=== PATIENT | female | born 1975 | race Caucasian/White ===

== ENCOUNTER → 2016-12-21 | Outpatient (CLI) | payer OTHER ==
[~2016-12-21] MED LIST: ALBUAER3 INH; BENZ100 PO; CITA10TA4 PO; FERR1TAB58 PO; FERR325C PO; LEVO125T4 PO; PRED20 PO; XARE20TA PO; ZITHTAB PO
[2016-12-21 15:23] LABS: MEAN CELL VOLUME 88.4 FL (80.0-100.0); MEAN CORPUSCULAR HEMOGLOBIN 31.4 PG (27.0-34.0); MEAN CORPUSCULAR HGB CONC 35.5 % (32.0-36.0); PLATELET COUNT 171 TH/MM3 (150-450); RED BLOOD COUNT 4.87 MIL/MM3 (4.00-5.30); RED CELL DISTRIBUTION WIDTH 12.4 % (11.6-17.2); REVIEW FLAG FINAL; WHITE BLOOD COUNT 7.4 TH/MM3 (4.0-11.0)
[2016-12-21 15:26] LABS: BACTERIA, URINE MOD /hpf; BLOOD, URINE NEG (NEG); GLUCOSE,URINE NEG (NEG); HYALINE CAST, URINE 1 /lpf (RARE); KETONE, URINE NEG (NEG); NITRITE,URINE NEG (NEG); SQUAMOUS EPITHELIAL CELL URINE 3 /hpf (0-5); URINE COLOR YELLOW (YELLW/STRAW)
[2016-12-21 15:33] LABS: ALT (GPT) 27 U/L (10-53); ANION GAP 7 MEQ/L (5-15); AST (GOT) 13 U/L (15-37); BICARBONATE 26.8 MEQ/L (21.0-32.0); BLOOD UREA NITROGEN 14 MG/DL (7-18); CHLORIDE 105 MEQ/L (98-107); GLOMERULAR FILTRATION RATE 61 ML/MIN (>89); GLUCOSE,FASTING 91 MG/DL (74-99); POTASSIUM 4.1 MEQ/L (3.5-5.1); SODIUM (NA) 139 MEQ/L (136-145)
[2016-12-21 15:36] LABS: ALKALINE PHOSPHATASE 74 U/L (45-117); TOTAL BILIRUBIN ADULT 0.4 MG/DL (0.2-1.0)
== END ==
LOC: CPRE 14:38
PROVIDERS: ATTEND Obstetrics & Gynecology
DX: Z01.810 Encounter for preprocedural cardiovascular examination (principal); N92.0 Excessive and frequent menstruation with regular cycle; N94.6 Dysmenorrhea, unspecified
CPT/HCPCS: 36415; 80053; 81001; 85027; 86304

== ENCOUNTER 2016-12-27 11:27 | Inpatient (IN) | payer OTHER ==
[~2016-12-27] VITALS: Ht 152.4 cm; Wt 63.4 kg
[~2016-12-27 11:27] MED LIST changes: -ALBUAER3 INH; -BENZ100 PO; +BUPIVACAINE LIPOSOME PF 1.3% 20 ML VIAL ONE; -CITA10TA4 PO; +DEXAMETHASONE SOD PHOS 4 MG/ML VIAL IV ONE; -FERR1TAB58 PO; +GLYCOPYRROLATE 0.2 MG/ML VIAL IV ONE; +LIDOCAINE HCL 1% PF 5 ML AMPULE OTHER ONE; +NEOSTIGMINE 3 MG/3 ML SYR IV ONE; +ONDANSETRON HCL 4 MG/2 ML VIAL IV PUSH ONE; -PRED20 PO; +PROPOFOL 200 MG/20 ML AMP IV ONE; +ROCURONIUM INJ 50 MG/5 ML SYRINGE IV PUSH ONE; -ZITHTAB PO
[2016-12-27] MEDS ORDERED: CHLORHEXIDINE GLUCONATE 2 % 1 PACK (2 CLOTHS) TOPICAL PRN (12:45)
[2016-12-27] MEDS ORDERED: POVIDONE IODINE 5% (ANTISEPSIS KIT) 4 APPLICATIONS EACH NARE PRN (12:45)
[2016-12-27] MEDS ORDERED: METOPROLOL TARTRATE 25 MG TAB PO PRN (12:45)
[2016-12-27] MEDS ORDERED: INSULIN HUMAN REGULAR 1,000 UNITS/10 ML VIAL SQ PRN (12:45)
[2016-12-27] MEDS ORDERED: LACTATED RINGER'S 1000 ML IV PRN (12:45)
[2016-12-27] MEDS ORDERED: SODIUM CHLORID 0.9% 500 ML IV PRN (12:45)
[2016-12-27] MEDS ORDERED: ceFAZolin 1,000 MG/NS 100 ML IV ONE ×2 (13:00)
[2016-12-27 13:14] LABS: BETA HCG QUANT LESS THAN 1 MIU/ML (0-5)
[2016-12-27] MEDS ORDERED: FAMOTIDINE 20 MG/2 ML VIAL ONE (13:41)
[2016-12-27] MEDS ORDERED: MIDAZOLAM HCL 2 MG/2 ML VIAL ONE (13:41)
[2016-12-27] MEDS ORDERED: ACETAMINOPHEN 1000 MG/100 ML 100 ML IV ONE (13:41)
[2016-12-27] MEDS ORDERED: ceFAZolin INJ 1,000 MG VIAL ONE (14:14)
[2016-12-27] MEDS ORDERED: ZOLPIDEM TARTRATE 5 MG TAB PO PRN (16:45)
[2016-12-27] MEDS ORDERED: IBUPROFEN 600 MG TAB PO PRN (16:45)
[2016-12-27] MEDS ORDERED: diphenhydrAMINE HCL 50 MG/ML VIAL IV PRN (16:45)
[2016-12-27] MEDS ORDERED: HYDROcodone/IBUPROFEN 7.5MG/200MG TAB PO PRN (16:45)
[2016-12-27] MEDS ORDERED: SODIUM CHLORIDE 0.9% FLUSH 10 ML FLUSH IV FLUSH PRN (16:45)
[2016-12-27] MEDS ORDERED: hydrOXYzine HCL 25 MG TAB PO PRN (16:45)
[2016-12-27] MEDS ORDERED: PROMETHAZINE INJ 25 MG/ML VIAL IM PRN (16:45)
[2016-12-27] MEDS ORDERED: *morphine SULFATE 8 MG/ML PERIprocedure ONLY ONE (16:56)
[2016-12-27] MEDS ORDERED: *PROMETHAZINE 25 MG/ML VIAL PERIprocedural use ONLY ONE (17:05)
[2016-12-27] MEDS ORDERED: *HYDROmorphone PF 1 MG VIAL PERIprocedural Use ONLY ONE ×3 (17:26→19:38)
[2016-12-27] MEDS ORDERED: DO NOT ADM ANY ANTICOAGULANT DRUGS PRN (17:30)
[2016-12-27] MEDS: LACTATED RINGER'S 1000 ML INJ 1,000 ML IV SCH (17:35)
[2016-12-27] MEDS ORDERED: *ONDANSETRON 4 MG VIAL PERIprocedural Use ONLY ONE (17:36)
[2016-12-27] MEDS ORDERED: HYDROmorphone HCL PF 1 MG/ML VIAL IV PRN (18:15)
[2016-12-27] MEDS ORDERED: *diphenhydrAMINE HCL 50 MG/ML VIAL PERIprocedural Use ONLY ONE (18:52)
[2016-12-27 20:00] VITALS: BP 122/76; PULSE 84; RESP 17; TEMP 99.9; O2SAT 99
[2016-12-27] MEDS: SODIUM CHLORIDE 0.9% FLUSH 10 ML FLUSH IV FLUSH SCH (20:37)
[2016-12-27] MEDS: oxyCODONE/ACETAMINOPHEN 5 MG/325 MG TAB PO PRN (22:36)
[2016-12-28] VITALS (8 sets, daily range): BP systolic 96–118; BP diastolic 58–70; PULSE 76–100; RESP 16–20; TEMP 98.4–100.3; O2SAT 93–99
[2016-12-28] MEDS: oxyCODONE/ACETAMINOPHEN 10 MG/325 MG TAB PO PRN ×6 (02:13→22:25)
[2016-12-28] MEDS: LACTATED RINGER'S 1000 ML INJ 1,000 ML IV SCH ×3 (02:15→15:44)
[2016-12-28] MEDS: LEVOTHYROXINE SODIUM 125 MCG TAB PO SCH (06:18)
[2016-12-28 06:45] LABS: AUTOMATED NEUTROPHIL # 7.3 TH/MM3 (1.8-7.7); BASOPHIL % 0.2 % (0.0-2.0); EOSINOPHIL % 0.1 % (0.0-4.0); HEMO FLAGS DIFF FINAL; LYMPH % 10.8 % (9.0-44.0); MEAN CELL VOLUME 88.2 FL (80.0-100.0); MEAN CORPUSCULAR HEMOGLOBIN 30.9 PG (27.0-34.0); MONO % 10.1 % (0.0-8.0); NEUT % 78.8 % (16.0-70.0); PLATELET COUNT 145 TH/MM3 (150-450); RED BLOOD COUNT 4.54 MIL/MM3 (4.00-5.30); RED CELL DISTRIBUTION WIDTH 12.4 % (11.6-17.2); WHITE BLOOD COUNT 9.3 TH/MM3 (4.0-11.0)
[2016-12-28 07:06] LABS: POTASSIUM 3.9 MEQ/L (3.5-5.1)
[2016-12-28] MEDS: SODIUM CHLORIDE 0.9% FLUSH 10 ML FLUSH IV FLUSH SCH ×2 (07:13→20:30)
--- NOTE | 2016-12-28 08:23 | MP ---
cc: STEPHANIE WOOD DATE OF SURGERY 27 December 2016 PREOPERATIVE DIAGNOSES 1. Huge myomatous uterus, 22 weeks size. 2. Menometrorrhagia. 3. Dysmenorrhea. POSTOPERATIVE DIAGNOSES 1. Huge myomatous uterus, 22 weeks size. 2. Menometrorrhagia. 3. Dysmenorrhea. PROCEDURE Examination under anesthesia. Total abdominal hysterectomy, bilateral salpingectomy, left ureterolysis and suspension of the ovaries bilaterally. ANESTHESIA General endotracheal intubation. SURGEON Tyson Wood MD LABOR RELATIONS OFFICER Issa Yadav MD FINDINGS On examination under anesthesia she had a 22-week sizes size uterus which was globular and irregular. Anteriorly she had subluxation of the infundibulopelvic ligaments which required suspension of the ovaries. She also has some bleeding right around the left ureter which required left ureterolysis. COMPLICATIONS None. COUNTS Correct. ESTIMATED BLOOD LOSS 250 cc. DISPOSITION The patient tolerated the procedure well and went to the recovery room in good condition. PROCEDURE IN DETAIL The patient was taken to the operating room, identified by name band and verbally and given a general anesthetic, prepped and draped in the usual sterile fashion supinely for abdominal hysterectomy. Examination at this time revealed the uterus to be 22 weeks size and irregular. She was prepped and draped in the usual sterile fashion and a large transverse incision was made into the skin and taken down. Once we had the rectus muscles the rectus muscles were transected bilaterally after securing the inferior epigastric vessels in the typical Maylard style. Once this had been accomplished the peritoneum was entered under direct vision and the uterus was delivered from the abdomen without difficulty. The round ligaments were taken bilaterally with Elizabeth clamps and 0 Vicryl pop offs. The uteroovarian ligaments were taken next with Elizabeth clamps and 0 Vicryl pop-offs. Once this had been accomplished the broad ligament was taken down to the level of the internal cervical os. At this point a bladder flap was created. There were large fibroid tumors abutting the bladder anteriorly and posteriorly making this very difficult to skeletonize the uterine vessels. Once a bladder flap was made and the bladder pushed well out of harm's way, the uterine vessels were taken with two Yennifer clamps and doubly tied with 0 Vicryl pop-offs. At this point we pushed the bladder further down and the cardinal ligament was taken off the cervix using Gerald clamps until the vaginal apex was attained. The vagina was incised sharply and the specimen was removed in toto using the Trip scissors. Using Kochers to hold the vaginal cuff, two lateral suspension sutures were placed with 0 Vicryl pop-offs and the vaginal cuff was closed in a [id number] fashion with 0 Vicryl pop-offs. Hemostasis was excellent at this point. Attention was turned to the ovaries. The ovaries were then suspended to the lateral pelvic sidewall making sure the infundibulopelvic structure was not kinked or folded over; this was done with 0 Vicryl pop-offs. At this time we noticed some bleeding around the left side very close to the ureter. We tried to use electrocautery but this was not successful. At this time we went retroperitoneally and dissected out that left ureter. At this time the bleeding was controlled with several [id number] sutures of 0 Vicryl with excellent results. At this point the bowels were packed back and the pelvis was irrigated with a large amount of fluids. Hemostasis of all surgical sites was excellent. The upper abdomen was explored and was normal. At this point we felt the surgery was successful and we closed the peritoneum was a 2-0 Vicryl in a running fashion. We put some Avitene on the rectus muscle at this time to control a little bit of oozing. The fascia was repaired then with a #1 PDS in a running fashion. The subcu was repaired with a 3-0 Vicryl and the skin was repaired with a 4-0 Monocryl in a subcuticular fashion with excellent results. The patient tolerated the procedure well. She went to the recovery room in good condition. R. Stephanie Wood MD RJV/SSB /7:14 PM /8:04 AM
[2016-12-28] MEDS ORDERED: RIVAROXABAN 10 MG TAB PO SCH (09:00)
[2016-12-28] MEDS: HEPARIN SODIUM - SQ 10,000 UNITS/ML VIAL SQ SCH ×2 (09:20→20:37)
[2016-12-28] MEDS: diphenhydrAMINE HCL 25 MG CAP PO PRN (10:15)
[2016-12-28] MEDS: ONDANSETRON ODT 4 MG TAB SL PRN ×2 (12:22→18:20)
--- NOTE | 2016-12-28 14:44 | HHI.DCPOC ---
Discharge Care Plan Diagnosis: (1) Deep vein thrombosis (2) Status post bilateral salpingectomy (3) S/P abdominal hysterectomy (4) Fibroid uterus Report Symptoms to Your Doctor -Temperature above 100.5 degrees -Redness, of incision or excessive or foul smelling drainage -Unusual pain or calf pain -Increased vaginal bleeding -Painful or difficulty urinating -Feelings of extreme sadness or anxiety after 2 weeks Goals to Promote Your Health * To prevent worsening of your condition and complications * To maintain your health at the optimal level Directions to Meet Your Goals Take your medications as prescribed Follow your dietary instruction Follow activity as directed Ensure plenty of rest for recovery Drink fluids for hydration Keep your appointments as scheduled Take your immunizations and boosters as scheduled If your symptoms worsen call your PCP, if no PCP go to Urgent Care Center or Emergency Room Smoking is Dangerous to Your Health. Avoid second hand smoke Call the 24-hour crisis hotline for domestic abuse at Flavia Reyes Dec 28, 2016 14:44
--- NOTE | 2016-12-28 18:03 | HHI.PR ---
Subjective Remarks Doing well, pain is well controlled, Tolerating clear liquids Objective Vital Signs Vital Signs Date Time Temp Pulse Resp B/P (MAP) Pulse Ox O2 Delivery O2 Flow Rate FiO2 12/28/16 16:00 99.3 85 20 118/70 (86) 98 12/28/16 13:41 99.4 12/28/16 12:53 100.3 86 20 96/58 (71) 93 12/28/16 08:00 98.4 76 19 111/67 (82) 93 12/28/16 06:13 98 Nasal Cannula 2.00 12/28/16 04:00 99.2 79 17 114/69 (84) 98 12/28/16 00:00 99.2 77 17 112/69 (83) 98 12/27/16 20:08 12 12/27/16 20:00 99.9 84 17 122/76 (91) 99 12/27/16 20:00 81 15 143/78 (99) 99 Nasal Cannula 2 12/27/16 18:30 98.2 71 15 149/77 (101) 98 Nasal Cannula 2 12/27/16 18:15 73 15 132/86 (101) 97 Nasal Cannula 2 I/O 12/27/16 12/27/16 12/27/16 12/28/16 12/28/16 12/28/16 07:00 15:00 23:00 07:00 15:00 23:00 Intake Total 200 ml 2400 ml 240 ml Output Total 775 ml 2200 ml 300 ml Balance 200 ml 1625 ml -1960 ml -300 ml Intake Oral 240 ml IV Total 200 ml 400 ml Other 2000 ml Output Urine Total 525 ml 2200 ml 300 ml Estimated Blood Loss 250 ml # Sanitary Pads 1 Pads Result Diagram: 12/28/16 0615 12/28/16 0615 Objective Remarks Chest is clear, regular rate and rhythm. Abdomen is soft and non-distended. Incision is clean and dry. Ext no CCE. A/P Assessment and Plan Post Op Day #1 Low grade fever will check a cbc in the am. Encourage ambulation and incentive spirometry Plan to d/c home in 1-2 days Tyson Wood MD Dec 28, 2016 18:03
[2016-12-29] MEDS: LACTATED RINGER'S 1000 ML INJ 1,000 ML IV SCH ×4 (00:21→21:48)
[2016-12-29 00:31] VITALS: BP 99/64; PULSE 91; RESP 18; TEMP 99.9; O2SAT 94
[2016-12-29] MEDS: oxyCODONE/ACETAMINOPHEN 10 MG/325 MG TAB PO PRN ×3 (03:32→21:52)
[2016-12-29 04:00] VITALS: BP 119/70; PULSE 86; RESP 16; TEMP 99; O2SAT 96
[2016-12-29] MEDS: LEVOTHYROXINE SODIUM 125 MCG TAB PO SCH (05:38)
[2016-12-29] MEDS: diphenhydrAMINE HCL 25 MG CAP PO PRN ×2 (05:39→19:13)
[2016-12-29 08:38] VITALS: BP 108/71; PULSE 92; RESP 20; TEMP 98.3; O2SAT 96
--- NOTE | 2016-12-29 08:43 | HHI.PR ---
Subjective Remarks Doing well, pain is well controlled, eating well. Feeling pretty drained, my left foot swelling is really better now. I think I will be ready to go home tomorrow Objective Vital Signs Vital Signs Date Time Temp Pulse Resp B/P (MAP) Pulse Ox O2 Delivery O2 Flow Rate FiO2 12/29/16 04:00 99.0 86 16 119/70 (86) 96 12/29/16 00:31 99.9 91 18 99/64 (76) 94 12/28/16 20:00 98.8 100 16 111/68 (82) 99 12/28/16 16:00 99.3 85 20 118/70 (86) 98 12/28/16 13:41 99.4 12/28/16 12:53 100.3 86 20 96/58 (71) 93 I/O 12/28/16 12/28/16 12/28/16 12/29/16 12/29/16 12/29/16 07:00 15:00 23:00 07:00 15:00 23:00 Intake Total 240 ml 240 ml Output Total 2200 ml 300 ml 700 ml Balance -1960 ml -300 ml -460 ml Intake Oral 240 ml 240 ml Output Urine Total 2200 ml 300 ml 700 ml # Voids 2 0 # Bowel Movements 0 0 # Sanitary Pads 1 Pads 1 Pads Result Diagram: 12/28/1661412/28/16614 Objective Remarks Chest is clear, regular rate and rhythm. Abdomen is soft and non-distended. Incision is clean and dry. Ext no CCE. A/P Assessment and Plan Post Op Day #2 Low grade fever this has resolved and was probably due to atelectasis. Plan to d/c home tomorrow Continue the heparin for now and restart her home meds tomorrow after discharge home Tyson Wood MD Dec 29, 2016 08:43
[2016-12-29] MEDS: SODIUM CHLORIDE 0.9% FLUSH 10 ML FLUSH IV FLUSH SCH ×2 (08:54→21:00)
[2016-12-29] MEDS: HEPARIN SODIUM - SQ 10,000 UNITS/ML VIAL SQ SCH ×2 (08:54→21:51)
[2016-12-29] MEDS: oxyCODONE/ACETAMINOPHEN 5 MG/325 MG TAB PO PRN ×2 (08:56→17:34)
[2016-12-29 12:11] VITALS: BP 113/71; PULSE 82; RESP 20; TEMP 98.4; O2SAT 96
[2016-12-29 16:14] VITALS: BP 109/67; PULSE 80; RESP 20; TEMP 99.3; O2SAT 97
[2016-12-29 20:00] VITALS: BP 104/61; PULSE 82; RESP 17; TEMP 97.7; O2SAT 95
[2016-12-30] VITALS: BP 114/63; PULSE 90; RESP 16; TEMP 100.1; O2SAT 95
[2016-12-30] MEDS: oxyCODONE/ACETAMINOPHEN 10 MG/325 MG TAB PO PRN ×2 (03:53→13:26)
[2016-12-30 04:00] VITALS: BP 105/57; PULSE 78; RESP 16; TEMP 98.4; O2SAT 96
[2016-12-30] MEDS: diphenhydrAMINE HCL 25 MG CAP PO PRN ×2 (05:23→13:26)
[2016-12-30] MEDS: LEVOTHYROXINE SODIUM 125 MCG TAB PO SCH (05:23)
[2016-12-30 08:00] VITALS: BP 110/70; PULSE 59; RESP 16; TEMP 98.1; O2SAT 98
[2016-12-30] MEDS: oxyCODONE/ACETAMINOPHEN 5 MG/325 MG TAB PO PRN (08:23)
[2016-12-30] MEDS: HEPARIN SODIUM - SQ 10,000 UNITS/ML VIAL SQ SCH (08:24)
[2016-12-30] MEDS: SODIUM CHLORIDE 0.9% FLUSH 10 ML FLUSH IV FLUSH SCH (08:24)
[2016-12-30] MEDS: LACTATED RINGER'S 1000 ML INJ 1,000 ML IV SCH (08:24)
[2016-12-30 12:00] VITALS: BP 106/69; PULSE 73; RESP 15; TEMP 96.6; O2SAT 96
== END 2016-12-30 16:41 | disposition home or self-care (01) | DRG 743 ==
LOC: HSDI 11:27 → HOCA 20:27
PROVIDERS: ADMIT Obstetrics & Gynecology; ATTEND Obstetrics & Gynecology
PROC: 0UTC0ZZ Resection of Cervix, Open Approach (ICD-10-PCS; 2016-12-27)
PROC: 0UT70ZZ Resection of Bilateral Fallopian Tubes, Open Approach (ICD-10-PCS; 2016-12-27)
PROC: 0US20ZZ Reposition Bilateral Ovaries, Open Approach (ICD-10-PCS; 2016-12-27)
PROC: 0UT90ZZ Resection of Uterus, Open Approach (ICD-10-PCS; principal; 2016-12-27 14:14)
DX: D25.9 Leiomyoma of uterus, unspecified (principal); N94.6 Dysmenorrhea, unspecified; N92.0 Excessive and frequent menstruation with regular cycle
CPT/HCPCS: 82565; 84132; 84702; 85025; 86850; 86900; 86901; 88307; 94150; C9290; J0131; J0690; J1100; J1170; J1200; J1644; J2250; J2270; J2405; J2550; J2710; J3010; J7120